=== PATIENT | male | born 1970 | race Caucasian/White ===

== ENCOUNTER 2025-05-17 12:52 | Inpatient (IN) | payer OTHER, SELFPAY ==
[2025-05-17] VITALS (10 sets, daily range): BP systolic 108–140; BP diastolic 61–98; BMI 33.7; BMI 31.6
--- NOTE | 2025-05-17 09:01 | ED.GENMED ---
History of Present Illness
General
Chief Complaint: Fainting/Passed Out
Source: patient and records
Exam Limitations: none
Time Seen by Provider: 05/17/25 08:37
Nursing documentation reviewed up to this point in time: agreed with
History of Present Illness
History of Present Illness:
54-year-old male with a past medical history of hypertension, atrial fibrillation status post ablation in 2022 no longer on anticoagulation who presents to the ER for evaluation after syncopal event; also complaining of chest pains on Friday and
persistent mild dizziness. Patient reports yesterday he got up from the couch to go into the kitchen�he says that 'the next thing I know I am on the ground.' He says he did not have any prodrome of chest pain or palpitations, shortness of breath
or even lightheadedness although since this episode he says he has had positional lightheadedness when going from sitting to standing. He fell down to the ground and hit the right side of his head on the ground. Sustained minor laceration/abrasion
to the forehead. He did not immediately seek care but says that this morning he still had some residual positional lightheadedness, had right sided headache and 'did not feel quite right' which prompted him to come to the ER. He does make note
that on Friday he was moving his son into college and noticed that he was having exertional chest pains when walking up the steps that limited his activity. He also notes that he has been under significant stress recently including the recent
passing of his father few weeks ago. He does have known history of A-fib but no other known cardiac issues; he says he has not had any issues since he had a cardiac ablation in [address] Alcaraz. His usual pit hand is Dr. Reddy.
Past History
Past History
ED Past Medical History: HTN
ED Past Surgical History: Appendectomy, Orthopedic and Other
Review of Systems
Review of Systems
All Other Systems: ROS reviewed and negative except as documented in HPI and ROS
Constitutional: Denies fever
Respiratory: Denies trouble breathing
Cardiac: Reports chest pain and syncope; Denies palpitations
ABD/GI: Denies abdominal pain
: Denies flank pain
Musculoskeletal: Denies neck pain or back pain
Neurological: Reports dizzy and headache
Phy Exam
Physical Exam
Physical Exam:
General: Awake, alert, oriented x3; no acute distress
Head: Normocephalic, patient has minor approximately 4 cm abrasion/very superficial laceration to the right forehead and a contusion in this area
Eyes: Conjunctiva normal, EOMI, pupils equal round reactive to light bilaterally
Throat: Airway intact, handling secretions
Neck: Trachea midline, moving freely without pain
Lungs: Clear to auscultation bilaterally, no wheezing, rales, rhonchi
Heart: Regular rate and rhythm, no murmurs, gallops, or rubs appreciated
Abd: Soft, non distended, nontender, no palpable masses
Back: No signs of trauma to the back or flank
Neuro: Cranial nerves grossly intact, speech fluid, motor and sensory grossly intact
Extremities: No edema in extremities, warm and well-perfused, atraumatic
Scores
Heart Failure Risk
Heart Failure Risk Score: Not Applicable
Heart Score for Chest Pain Patients
STEMI patient?: Not applicable
Withdrawal Assessment of Alcohol
Withdrawal Assessment Completed?: Not applicable
Course
Orders/Labs/Results
Orders:
Orders
05/17/25 08:36
Electrocardiogram (*1) Urgent
Reason for Study: Syncope
EKG- Treatment ONCE
05/17/25 08:57
CT Head W/o Iv Contrast Urgent
Comment:
Reason For Exam: syncope and collapse, frontal head strike
Orthostatic VS- Treatment ONCE
05/17/25 08:58
0.9% Sodium Chloride 1000 ml [Nss] 1,000 ml IV BOLUS
05/17/25 09:05
Complete Blood Count/With Diff Urgent
Comprehensive Metabolic Panel Urgent
Magnesium Urgent
Troponin I Urgent
05/17/25 09:19
D-Dimer Urgent
05/17/25 10:15
0.9% Sodium Chloride 1000 ml [Nss] 1,000 ml IV BOLUS
Magnesium Sulfate 2 Gram/50 ml [Magnesium Sulfate] 2 gram in 50 ml IV NOW
Abnormal Lab Results
05/17/25 05/17/25
09:05 09:19
RBC 4.34 L 10^6/uL
(4.70-6.10)
MCV 94.5 H fL
(80.0-94.0)
MCH 34.3 H pg
(27.0-31.0)
Absolute Monos (auto) 0.7 H 10^3/uL
(0.1-0.6)
Monocytes % 12.0 H %
(1.7-9.3)
D-Dimer 0.80 H ug/mlFEU
(0.00-0.50)
BUN 25 H mg/dl
(9-20)
Creatinine 1.7 H mg/dL
(0.7-1.3)
Glucose 109 H mg/dl
(70-99)
Magnesium 1.5 L mg/dl
(1.6-2.3)
AST 129 H U/L
(17-59)
ALT 95 H U/L
(0-50)
05/17/25 09:05
05/17/25 09:05
Vital Signs
Initial and Last Documented VS:
Initial Vital Signs
Temp Pulse Resp BP Pulse Ox
37.0 C 87 16 121/86 98
05/17/25 08:34 05/17/25 08:34 05/17/25 08:34 05/17/25 08:34 05/17/25 08:34
Last Documented Vital Signs
Temp Pulse Resp BP Pulse Ox
37.0 C 87 16 121/86 98
05/17/25 08:34 05/17/25 08:34 05/17/25 08:34 05/17/25 08:34 05/17/25 09:02
MDM/Problems Addressed
Differential Diagnosis Includes:
Syncope: Orthostatic hypotension/postural syncope, vasovagal syncope, dysrhythmia, dehydration, electrolyte derangement, valvular disease, PE
MDM/Problems Addressed:
54-year-old male presents for evaluation after episode of syncope yesterday�still with some residual positional lightheadedness today. No associated chest pains over the past 48 hours but did have some exertional chest pains with moving his son
into college on Friday. Vital signs are within acceptable range here. Physical exam is as above. EKG shows sinus rhythm with no ectopy or AV block, no Brugada, normal QTc. Plan to place an IV and send labs including a CBC and a CMP. Will check
troponin. Check D-dimer PE with chest pain Friday and syncope yesterday although low clinical suspicion for PE. Will check CT head after his fall with head strike and residual headache. Performed some minor wound care measures with Steri-Strips
and Dermabond but wound very superficial no need for sutures. He reports tetanus up-to-date. Monitor closely reassess after the above.
Labs reviewed: CBC unremarkable, CMP shows significant FEDERICO with creatinine of 1.7 from baseline of 0.6. Hypomagnesemia 1.5 will replete. He does have mild transaminitis with AST greater than ALT as she admits to recent increased alcohol use due to
stress. His troponin is undetectable. His D-dimer was marginally elevated but taking full clinical picture into account very low suspicion that this is a PE�he denies current chest pain or dyspnea, has normal heart rate without tachypnea, no
hypoxia, no hemoptysis, etc. More likely elevation related to minor head trauma with laceration and contusion. In my judgment given his significant acute renal injury would hold off on CT angiogram for now. CT head after the fall with head strike
was negative for any acute posttraumatic injury. Will resuscitate with IV fluids will admit for continued monitoring and fluid resuscitation. Discussed case with hospitalist.
Chronic conditions affecting care:
Atrial fibrillation
*Radiology
Radiology exam reviewed: radiology read reviewed
*Pulse Oximetry
SaO2: 98
Oxygen Mode of Delivery: Room air
Patient hypoxic: no (98%)
*EKG
Interpreted by ED Provider?: Yes
Heart Rate: 68
Rate: normal
Rhythm: sinus
[facility] [place]: normal axis
Interval: normal interval
QRS Pattern: normal QRS
Ischemia: no ischemia
*Critical Care Note
Total Time (30-74mins, 75-104mins- exclusive of procedures): Not Applicable
Data Reviewed
Review of Other/Old Records Reveals: Labs and Records
Source: patient and records
Further Testing Considered But Not Given:
Considered CT chest
Patient Management
Discussion with other providers: Hospitalist (Discussed with hospitalist)
Escalation/DeEscalation of care consider admission/obs:
Admission indicated
ED Attending Note
-
Portions of this chart may have been created with voice recognition software.� Occasional wrong word or��sound alike� substitutions may have occurred due to the inherent limitations of voice recognition software.
Discharge Plan
Departure
Patient Disposition: Admit
Date of Disposition: 05/17/25
Time of Disposition: 10:22
Admit to doctor: José Manuel
Presentation/result/management discussed w/ accepting MD/DO: Hospitalist
Discharge Problem:
Syncope and collapse, FEDERICO (acute kidney injury), Forehead laceration
Prescriptions:
No Action
lisinopril 10 mg Tablet
10 mg PO DAILY
Zyrtec 10 mg Capsule
10 mg PO DAILY
Eliquis 5 mg Tablet
5 mg PO BID
diltiazem HCl 120 mg Tablet
120 mg PO DAILY Qty: 0 0RF
Referrals:
Constantine Estrada MD [Family Provider, [facility]]
Interventions
Interventions:
*Risk Screen - Suicide Last Done: 05/17/25 08:34
*General Assessment Last Done: 05/17/25 08:52
*Neglect/Abuse Screening Last Done: 05/17/25 08:34
*ED- Fall Risk Assessment Last Done: 05/17/25 08:52
*ED COVID-19 Vaccine History Last Done: 05/17/25 08:56
ED- Cardiac Assessment Last Done: 05/17/25 08:52
ED- Neurological Assessment Last Done: 05/17/25 08:52
Discharge Date and Time
Print Language: MALTESE
[2025-05-17] MEDS: NSS 1000 IV ×3 (09:08→18:34)
[2025-05-17 09:24] LABS: Hematocrit 41.0 % (39.0-52.0); Hemoglobin 14.9 g/dL (13.0-18.0); Mean Corp Hgb Conc. 36.3 g/dL (33.0-37.0); Mean Corpuscular Volume 94.5 fL (80.0-94.0); Nucleated Red Blood Cells % 0 % (-); Platelet Count 193 10^3/uL (130-400); Red Cell Dist. Width 13.8 % (11.5-14.5)
[2025-05-17 09:43] LABS: ALT (SGPT) 95 U/L (0-50); AST (SGOT) 129 U/L (17-59); Albumin 4.7 g/dl (3.5-5.0); Alkaline Phosphatase 82 U/L (38-126); Blood Urea Nitrogen 25 mg/dl (9-20); Calcium 9.9 mg/dl (8.4-10.2); Carbon Dioxide 24 mmol/L (22-30); Chloride 98 mmol/L (98-107); Glucose 109 mg/dl (70-99); Magnesium 1.5 mg/dl (1.6-2.3); Potassium 4.3 mmol/L (3.5-5.1); Sodium 135 mmol/L (135-145); Total Protein 7.8 g/dl (6.3-8.2); eGFR 47.02
[2025-05-17 09:50] LABS: Troponin I < 0.012 ng/ml
[2025-05-17 10:11] LABS: D-Dimer 0.80 ug/mlFEU (0.00-0.50)
[2025-05-17] MEDS: MAGNESIUM SULFATE 50 IV (10:30)
[2025-05-17] MEDS: TYLENOL 650 MG PO (11:02)
--- NOTE | 2025-05-17 12:38 | HPS.HSE ---
Family Physician
-
Family Physician: Constantine Estrada
Chief Complaint
-
Syncope
History of Present Illness
54-year-old male had a syncopal episode yesterday afternoon. Did have symptoms of lightheadedness before he passed out. He was at home when it happened, stood up to walk across the room and subsequently found himself facedown. His mother tried to
wake him up.
Denies history of syncope.
Denies associated symptoms such as chest pain or shortness of breath. Has mild frontal headache as a result of head strike when he went down.
States he has been under a lot of stress lately due to recent loss of his father, his son started college, lots of work stress.
He has been drinking heavily on a daily basis, 4 drinks of vodka daily. Last drink was yesterday.
Medical History
Past Medical History
Past Medical History: Reports Other
Additional Past Medical History:
Essential hypertension
Paroxysmal atrial fibrillation
Alcohol use disorder
Past Surgical History: Reports Other
Additional Past Surgical History:
Ablation for atrial fibrillation, 2022
Left inguinal hernia repair
Social History
Tobacco: Non-smoker
Alcohol: Daily
Drug: None
Living: With Family
Employment: Employed
Family History
Family History: Not pertinent
Allergies / Home Medications
Allergies reflects when Allergies were last updated in [employer].
Home Medications with original date entered in [employer]
Allergy/Medication List:
Allergies
Allergy/AdvReac Type Severity Reaction Status Date / Time
Environmental Allergy Burning Uncoded 05/17/25 08:36
eyes,
itching
Home Medications
cetirizine 10 mg capsule (Zyrtec) 10 mg PO DAILY 08/05/23
lisinopril 10 mg tablet 10 mg PO DAILY 08/05/23
diltiazem HCl 240 mg capsule,24 hr,extended release 240 mg PO DAILY 05/17/25
hydrochlorothiazide 12.5 mg capsule 12.5 mg PO DAILY 05/17/25
Review of Systems
-
History Source: Patient
A 12 point ROS was completed and negative except as noted: Yes
Physical Exam
Vital Signs
Vital Signs
Temp Pulse Resp BP Pulse Ox
98.6 F 76 14 110/69 93
05/17/25 08:34 05/17/25 12:30 05/17/25 12:30 05/17/25 12:00 05/17/25 12:30
Physical Exam
General: Well Developed, Well Nourished, No Apparent Distress and Comfortable
HEENT: Anicteric, Moist mucous membranes, PERRLA and Other (Right frontal laceration with dressing intact)
Respiratory: Clear
Cardiac: S1/S2 and Regular Rhythm
GI: Soft, Non Tender and Non Distended
Genito-urinary: Deferred by me
Musculoskeletal: No Clubbing, No Cyanosis and No Edema
Skin: Warm and Dry
Neuro: AO x 3
Hematologic/Lymphatic: No Lymphadenopathy
Psych: Calm
Laboratory Results
-
05/17/25 09:05
05/17/25 09:05
Laboratory Results
Total Bilirubin 1.0 mg/dl (0.2-1.3) 05/17/25 09:05
AST 129 U/L (17-59) H 05/17/25 09:05
ALT 95 U/L (0-50) H 05/17/25 09:05
Alkaline Phosphatase 82 U/L (38-126) 05/17/25 09:05
Troponin I < 0.012 ng/ml 05/17/25 09:05
Impression/Plan
-
Syncope -suspect due to volume depletion due to alcohol use disorder. Hold antihypertensives. Continue IV fluid repletion.
Admit to telemetry. Doubt arrhythmic etiology for syncope.
EKG with normal sinus rhythm. Normal QTc.
Head laceration due to syncope -CT head negative.
FEDERICO -due to volume depletion. Hold lisinopril, HCTZ. IV fluids as above. Recheck labs in the morning.
Hypomagnesemia -repleted in the emergency room. Recheck levels tomorrow.
Acute alcohol induced hepatitis -recheck labs in the morning.
Alcohol use disorder -drinks vodka daily. He uses it as a coping mechanism due to life stress. History of depression, anxiety disorder. Not on medications.
He is agreeable to psychiatry consult. Interested in abstaining from further alcohol use.
History of atrial fibrillation -treated with ablation, 2022. Off anticoagulation since.
Essential hypertension -stable.
Full code
[2025-05-17 12:59] LABS: Troponin I < 0.012 ng/ml
--- NOTE | 2025-05-17 13:40 | CM ---
CM reviewed chart and met with pt bedside in ED. Pt lives alone, ranch style home, no FRANK.
Independent in ADLs, personal care and ambulation at baseline, no DME.
Confirms prescription coverage.
No hx VN or SNF.
PCP: Constantine Estrada
Pharmacy: [facility]
Anticipate discharge home, CM will continue to follow for any discharge planning needs.
--- NOTE | 2025-05-17 16:04 | CON.MD ---
Consultation - Medical
-
pt seen by me today at request of Dr Vanessa due to depression/anxiety/grief/alcohol use
54 yo man brought to ED by employer due to showing up with obvious injury to face from fall yesterday. Unclear if related to a fib (which had been ablated) or alcohol use/withdrawal, or more likely dehydration and hypotension while drinking.
Has been using large amounts of alcohol over past two years as father's health has declined, with worsening over past two weeks since father . Lives alone but has supportive family; mother had come to visit him and heard him fall in kitchen,
barely able to arouse him. Seen by RHINA pierre who applied steri strips, spent the night at home alone, went into work today not feeling well, brought in.
Has seen meaning to stop alcohol use, as well as get some help from mental health provider due to overwhelming grief.
Past psychiatric history significant for teen drinking/drug use, but stopped all that during marriage. As marriage fell apart ( 6 years ago) pt turned again to alcohol to cope, doc after discovering infidelity. Seen at [facility]
outpatient, felt it was a good experience.
Had 24 years of sobriety during marriage, at 's insistence.
No history of medication for mental health problems.
Family history of alcohol use disorder on mother's side, including cousin who from it.
Medical history sig for a fib ablated this spring. Hypertensive.
Born and [place] in [place], became difficult to manage in teens so father asked him to leave at age 15. Went to stay with cousin then moved to [place] to be with friend there. Returned here, found GF who was unfaithful, then met ex-,
with two sons. Older son with Asberger's, caused tension in family ('I was in denial') Sons now both in college, close to him and to ex-.
Worked over 20 years in [employer] business, more recently a credit analysis manager for [employer]. Job secure, financially secure
Not currently dating.
Sleeps poorly (up every two hours) appetite only fair, libido fair. enjoys golf
Has thought of suicide at times, not presently (took gun to neighbor's house for safe-keeping when in process of divorce.)
No drug allergies
Meds diltiazem, HCTZ, zyrtec
MSE: Alert oriented pleasant but freqently tearful man, wd/wn lying in bed on monitor. Chokes up when talking about father and the trouble pt gave him, denies current suicidal ideation. No signs of cognitive impairment, no signs of psychosis.
Depressed mood and affect
Impression: Alcohol use disorder, moderate
Acute grief complicating underlying depressive disorder
Recommendations;
Needs alcohol withdrawal protocol; phenobarb contraindicated with diltiazem, will instead use taper of gabapentin
Might benefit from antidepressant, will reassess in am
+/- inpatient alcohol rehab, likely could do well with IOP
--- NOTE | 2025-05-17 17:37 | PTCARENOTE ---
Received pt from ER via stretcher, accompanied by ER staff. Pt AAO x3, sl anxious; CARCAMO well, ambulatory to bed, no c/o weakness/dizziness. Pt with (+) arm tremors at times. MSAS 3. VSS. Placed on telemetry:NSR. On room air- pulse ox 94%, no SOB
noted. Abd obese, round, non-tender; to be on regular diet. Pt DTV; urinal at bedside; aware of need for urine specimen. Afebrile; face flushed, steristrips intact to Rt forehead laceration. IVF's NSS@ 80 ml/hr started via Rt AC site, currently
infusing well without sx of infiltration. Resting in bed at present. Will continue to monitor.
[2025-05-17 18:05] LABS: INR 0.98; PT 13.3 Sec (11.4-14.6)
[2025-05-17 18:06] LABS: APTT 24.8 Sec (23.4-35.0)
[2025-05-17] MEDS: THIAMINE INJECTION 200 MG IV (18:33)
[2025-05-17] MEDS: FOLVITE 1 MG PO (18:33)
[2025-05-17] MEDS: NEURONTIN 600 MG PO ×2 (18:33→21:05)
[2025-05-17] MEDS: FLUSH (NSS) 1 FLUSH IV (18:33)
[2025-05-17 18:59] LABS: Urine Character Clear (Clear)
[2025-05-17] MEDS: MELATONIN 5 MG PO (21:04)
[2025-05-17] MEDS: HEPARIN 5000 UNITS SC (21:04)
[2025-05-18] MEDS: TYLENOL 650 MG PO (00:43)
[2025-05-18] MEDS: THIAMINE INJECTION 200 MG IV ×3 (00:44→17:07)
[2025-05-18 03:47] VITALS: BP 134/97
[2025-05-18] MEDS: NSS 1000 IV (06:43)
[2025-05-18 07:20] VITALS: BP 142/95
[2025-05-18 09:16] LABS: ALT (SGPT) 65 U/L (0-50); AST (SGOT) 71 U/L (17-59); Albumin 3.9 g/dl (3.5-5.0); Alkaline Phosphatase 69 U/L (38-126); Blood Urea Nitrogen 20 mg/dl (9-20); Calcium 8.7 mg/dl (8.4-10.2); Carbon Dioxide 26 mmol/L (22-30); Chloride 102 mmol/L (98-107); Estimated Creatinine Clearance 87 ml/min; Glucose 93 mg/dl (70-99); Magnesium 1.7 mg/dl (1.6-2.3); Potassium 4.1 mmol/L (3.5-5.1); Sodium 134 mmol/L (135-145); Total Protein 6.3 g/dl (6.3-8.2); eGFR > 60.00
[2025-05-18] MEDS: ZYRTEC 10 MG PO (09:27)
[2025-05-18] MEDS: CARDIZEM CD 240 MG PO (09:27)
[2025-05-18] MEDS: HEPARIN 5000 UNITS SC ×2 (09:27→21:14)
[2025-05-18] MEDS: FOLVITE 1 MG PO (09:28)
[2025-05-18] MEDS: NEURONTIN 400 MG PO ×3 (09:28→21:15)
--- NOTE | 2025-05-18 10:25 | W.PN.HOSP.TC ---
Today's Communication/Plan
-
Discharge planning
Assessment / Plan
Assessment / Plan
Gen-AAOx3, NAD
HEENT-right frontal scalp dressing intact, anicteric, clear oral mm
Neck-supple
CV-reg, no M, +S1/S2
Lungs-clear B/L
Abd-soft, NT, ND
Ext-no edema
Musculoskeletal-no cyanosis, clubbing
Skin-warm and dry
Neuro-grossly non-focal
Psych-calm, cooperative
Syncope -suspect due to volume depletion due to alcohol use disorder.
Admit to telemetry. Doubt arrhythmic etiology for syncope.
EKG with normal sinus rhythm. Normal QTc.
Head laceration due to syncope -CT head negative.
FEDERICO -due to volume depletion. Hold lisinopril, HCTZ. IV fluids as above. FEDERICO resolved.
Hyponatremia -mild, 134. Monitor for now. Continue to hold HCTZ.
Hypomagnesemia -improved.
Acute alcohol induced hepatitis -labs improving.
Nasal congestion/acute sinusitis -with facial pressure. Saline mist nasal spray ordered.
Alcohol use disorder -drinks vodka daily. He uses it as a coping mechanism due to life stress. History of depression, anxiety disorder. Not on medications.
Appreciate psychiatry input.
Continue gabapentin taper. Tremors are improving.
Has not required as needed lorazepam so far.
History of atrial fibrillation -treated with ablation, 2022. Off anticoagulation since.
Essential hypertension -stable.
Full code
Dispo -appears medically stable for discharge, await social work and psychiatry input regarding alcohol rehab.
Patient interested in intensive outpatient program.
Family updated at the bedside.
Anticipated Discharge: Today
Subjective/Interval History
-
Date of Service: May 18, 2025
Patient seen and examined, complaining of nasal congestion and facial pressure.
Objective Data
-
Labs:
Laboratory Results
05/18/25
07:11
Sodium 134 L
Potassium 4.1
Chloride 102
Carbon Dioxide 26
BUN 20
Creatinine 1.2
Glucose 93
Calcium 8.7
Total Bilirubin 1.3
AST 71 H
ALT 65 H
Alkaline Phosphatase 69
Vital Signs:
Vital Signs
Temp Pulse Resp BP Pulse Ox
97.8 F 62 18 142/95 96
05/18/25 07:20 05/18/25 07:20 05/18/25 07:20 05/18/25 07:20 05/18/25 07:20
I&O
05/17/25 05/18/25 05/19/25
06:59 06:59 06:59
Intake Total 1600 / 1600
Output Total 300 / 300
Balance 1300 / 1300
Review of Systems
-
History Source: Patient
All other systems: Reviewed and negative
[2025-05-18 11:24] VITALS: BP 141/81
--- NOTE | 2025-05-18 12:14 | CM ---
Chart reviewed. Discussed w/ hospitalist and psychiatrist, plan is for patient to remain in hospital for a few more days to detox and for patient to start w/ IOP. Spoke w/ Hugo/THOMAS, informed CM that Bhaskar will meet w/ patient today and assist w/
setting up IOP.
Patient is agreeable to staying in the hospital and meeting w/ THOMAS later today
Plan: Home w/ IOP once medically stable
[2025-05-18] MEDS: OCEAN, SALINE MIST 2 SPRAYS NASAL (12:17)
--- NOTE | 2025-05-18 12:28 | W.PN.UPDATE ---
Update Note
Progress Note Update
patient seen chart reviewed. discusssed with nursing and with dr stanton. dr ladd and cm texted. patient was very thoughtful and engaged in discussion of his alcoholism and his life history. he had 27 years of sobriety he said largely under his
now 's supervision. over the past two years he has suffered much loss. his best friend of cancer his aunt of pancreatic cancer and his father two weeks ago here at ...in fact [place] the [place]. in the past two years he has consumed
five vodka drinks at least daily. he has not been sober long enough to get wd sx. he does admit to being somewhat tremulous now but he is only here since yesterday so may not be in full wd yet. there is not a bal on chart but he drank the day
before so level may have been zero at admit. he seems motivated for sobriety. he does have supports two sons of whom he seems very proud a mother and sis. he misses his dad who was his best friend. he does have a job to return to. he was
treated with psychotherapy at [facility] about six years ago. no psych meds. he is agreeable to [facility] [place] [facility] discussed w dr ladd keeping him a few more days re possible wd and then he can go to IOP AA etc. [facility] will see him this afternoon. do not feel
he needs antidepressants right now. using gabapentin for detox. has not required bzp's. bps slightly high will follow
[2025-05-18 15:29] VITALS: BP 156/94
[2025-05-18 19:34] VITALS: BP 155/97
[2025-05-18] MEDS: MELATONIN 5 MG PO (21:14)
[2025-05-18 23:51] VITALS: BP 142/93
[2025-05-19] MEDS: THIAMINE INJECTION 200 MG IV ×3 (00:01→15:58)
[2025-05-19 03:28] VITALS: BP 142/95
[2025-05-19 07:30] VITALS: BP 120/90
[2025-05-19 07:31] LABS: Glucose - Point of Care 101 mg/dl (70-99)
[2025-05-19] MEDS: CARDIZEM CD 240 MG PO (08:06)
[2025-05-19] MEDS: ZYRTEC 10 MG PO (08:06)
[2025-05-19] MEDS: NEURONTIN 400 MG PO ×3 (08:06→21:02)
[2025-05-19] MEDS: HEPARIN 5000 UNITS SC ×2 (08:06→21:04)
[2025-05-19] MEDS: FOLVITE 1 MG PO (08:06)
[2025-05-19 11:36] VITALS: BP 124/88
--- NOTE | 2025-05-19 12:00 | W.PN.HOSP.TC ---
Today's Communication/Plan
-
Orthostatic vitals
Await psychiatry input
Assessment / Plan
Assessment / Plan
Gen-AAOx3, NAD
HEENT-right frontal scalp dressing intact, anicteric, clear oral mm
Neck-supple
CV-reg, no M, +S1/S2
Lungs-clear B/L
Abd-soft, NT, ND
Ext-no edema
Musculoskeletal-no cyanosis, clubbing, minimal bilateral hand tremor
Skin-warm and dry
Neuro-grossly non-focal
Psych-calm, cooperative
Syncope -suspect due to volume depletion due to alcohol use disorder.
Doubt arrhythmic etiology for syncope.
EKG with normal sinus rhythm. Normal QTc.
Check orthostatics.
Head laceration due to syncope -CT head negative.
FEDERICO -due to volume depletion. Hold lisinopril, HCTZ. IV fluids as above. FEDERICO resolved.
Hyponatremia -mild, 134. Monitor for now. Continue to hold HCTZ.
Hypomagnesemia -improved.
Acute alcohol induced hepatitis -labs improving.
Nasal congestion/acute sinusitis -with facial pressure. Saline mist nasal spray ordered.
Alcohol use disorder -drinks vodka daily. He uses it as a coping mechanism due to life stress. History of depression, anxiety disorder. Not on medications.
Appreciate psychiatry input.
Continue gabapentin taper. Tremors are improving.
Has not required as needed lorazepam so far.
History of atrial fibrillation -treated with ablation, 2022. Off anticoagulation since.
Essential hypertension -stable.
Full code
Dispo -appears medically stable for discharge, await social work and psychiatry input regarding alcohol rehab.
Patient interested in intensive outpatient program.
Discharge if cleared by psychiatry.
Family updated at the bedside.
Anticipated Discharge: Within 24 hours
Subjective/Interval History
-
Date of Service: May 19, 2025
Patient seen and examined. Feels better today, mild frontal headache.
Objective Data
-
Vital Signs:
Vital Signs
Temp Pulse Resp BP Pulse Ox
98.6 F 89 18 124/88 93
05/19/25 11:36 05/19/25 11:36 05/19/25 11:36 05/19/25 11:36 05/19/25 11:36
I&O
05/18/25 05/19/25 05/20/25
06:59 06:59 06:59
Intake Total 1600 / 1600 1080 / 1080
Output Total 300 / 300
Balance 1300 / 1300 1080 / 1080
Review of Systems
-
History Source: Patient
All other systems: Reviewed and negative
[2025-05-19] MEDS: TYLENOL 650 MG PO (12:13)
[2025-05-19 13:00] VITALS: BP 119/83; BP 126/80; BP 128/83; PULSE 71; PULSE 80; PULSE 88
--- NOTE | 2025-05-19 14:15 | W.PN.UPDATE ---
Update Note
Progress Note Update
patient seen chart reviewed. discussed with nursing. mr myles is doing very well. he said he feels much better than he has in a very long time. his tremulousness while still present to a degree is much less. his mother sister and a friend were in
to visit and were he says pleased with his progress. friend is nine years in recovery and is willing to be his AA sponsor. he met with bcacyn who have made some suggestions for iop. i suggested he make an appt today with iop for early next week as
it is likely he will be dc tomorrow. we talked about whether to continue gabapentin which he feels is helpful w anxiety. it is used nowadays as an aid to sobriety but of course it too can be misused. would consider using 300 mg tid which is the
dose he will be on for tomorrow for a time after dc . many iop programs have psychiatrists...if not his pcp could prescribe gabapentin for him. we talked about a plan for sobriety. exactly how he will deal with temptations to drink which will
surely occur. family has removed all etoh from the home. suggested he think about a plan and carry it with him written on an index card eg ten tasks he can begin when he is tempted to drink these should be things he can easily do eg calling a
friend, walking around the block ten times call sponsor get to a meeting etc etc. psych will check in w him tomorrow.
[2025-05-19 15:30] VITALS: BP 140/90
[2025-05-19] MEDS: OCEAN, SALINE MIST 2 SPRAYS NASAL (22:58)
[2025-05-19] MEDS: MELATONIN 5 MG PO (22:58)
[2025-05-19 23:22] VITALS: BP 148/99
[2025-05-20] MEDS: THIAMINE INJECTION 200 MG IV ×2 (00:07→09:23)
[2025-05-20] MEDS: TYLENOL 650 MG PO (05:16)
[2025-05-20 07:20] VITALS: BP 143/98
[2025-05-20 09:16] LABS: ALT (SGPT) 67 U/L (0-50); AST (SGOT) 77 U/L (17-59); Albumin 3.9 g/dl (3.5-5.0); Alkaline Phosphatase 70 U/L (38-126); Blood Urea Nitrogen 13 mg/dl (9-20); Calcium 8.9 mg/dl (8.4-10.2); Carbon Dioxide 27 mmol/L (22-30); Chloride 104 mmol/L (98-107); Estimated Creatinine Clearance 95 ml/min; Glucose 110 mg/dl (70-99); Potassium 4.4 mmol/L (3.5-5.1); Sodium 135 mmol/L (135-145); Total Protein 6.4 g/dl (6.3-8.2); eGFR > 60.00
[2025-05-20] MEDS: NEURONTIN 300 MG PO (09:21)
[2025-05-20] MEDS: FOLVITE 1 MG PO (09:21)
[2025-05-20] MEDS: CARDIZEM CD 240 MG PO (09:21)
[2025-05-20] MEDS: HEPARIN 5000 UNITS SC (09:21)
[2025-05-20] MEDS: ZYRTEC 10 MG PO (09:22)
--- NOTE | 2025-05-20 10:00 | W.PN.HOSP.TC ---
Addendum entered and electronically signed by Eliseo Vanessa DO 05/20/25 10:30:
Psychiatry service (Dr. Biswas) okay with discharge today.
Follow-up with intensive outpatient program for alcohol.
Follow-up with PCP.
Original Note:
Today's Communication/Plan
-
Await psychiatry input
Assessment / Plan
Assessment / Plan
Gen-AAOx3, NAD
HEENT-right frontal scalp dressing intact, anicteric, clear oral mm, healing and fading facial bruise under right eye
Neck-supple
CV-reg, no M, +S1/S2
Lungs-clear B/L
Abd-soft, NT, ND
Ext-no edema
Musculoskeletal-no cyanosis, clubbing, minimal bilateral hand tremor
Skin-warm and dry
Neuro-grossly non-focal
Psych-calm, cooperative
Syncope -suspect due to volume depletion due to alcohol use disorder.
Doubt arrhythmic etiology for syncope.
EKG with normal sinus rhythm. Normal QTc.
Orthostatics negative.
Head laceration due to syncope -CT head negative.
FEDERICO -due to volume depletion. Hold lisinopril, HCTZ. IV fluids as above. FEDERICO resolved.
Hyponatremia -resolved.
Hypomagnesemia -improved.
Acute alcohol induced hepatitis -labs improving. Can check liver enzymes in 2 weeks with primary care doctor and consider liver ultrasound if still elevated. May have fatty liver disease due to obesity. Discussed with patient. Weight loss
recommended.
Nasal congestion/acute sinusitis -with facial pressure. Saline mist nasal spray ordered.
Alcohol use disorder -drinks vodka daily. He uses it as a coping mechanism due to life stress. History of depression, anxiety disorder. Not on medications.
Appreciate psychiatry input.
Continue gabapentin taper. Tremors are improving.
Has not required as needed benzodiazepines so far.
History of atrial fibrillation -treated with ablation, 2022. Off anticoagulation since.
Essential hypertension -stable.
Full code
Dispo -appears medically stable for discharge, await social work and psychiatry input regarding alcohol rehab.
Patient interested in intensive outpatient program.
Discharge if cleared by psychiatry.
Anticipated Discharge: Today
Subjective/Interval History
-
Date of Service: May 20, 2025
Patient seen and examined. Had a headache last night, relieved with Tylenol.
Objective Data
-
Labs:
Laboratory Results
05/20/25
08:09
Sodium 135
Potassium 4.4
Chloride 104
Carbon Dioxide 27
BUN 13
Creatinine 1.1
Glucose 110 H
Calcium 8.9
Total Bilirubin 0.8
AST 77 H
ALT 67 H
Alkaline Phosphatase 70
Vital Signs:
Vital Signs
Temp Pulse Resp BP Pulse Ox
97.6 F 72 16 143/98 95
05/20/25 07:20 05/20/25 09:21 05/20/25 07:20 05/20/25 09:21 05/20/25 07:20
I&O
05/19/25 05/20/25 05/21/25
06:59 06:59 06:59
Intake Total 1080 / 1080 360 / 360
Balance 1080 / 1080 360 / 360
Review of Systems
-
History Source: Patient
All other systems: Reviewed and negative
--- NOTE | 2025-05-20 10:29 | W.DS.TRANS ---
DC Summary - [facility]
-
Discharge Instructions:
Discharge Diagnosis/Procedures Syncope, acute kidney injury, head laceration,
hepatitis
Diet Regular
Activity As tolerated
Driving Restrictions As prior to admission
Bathing Restrictions None
Instructions:
Stand-Alone Forms:
Changes to Home Medications: Yes
Discharge Medications:
DC Medications w/original date entered in [facility]
cetirizine 10 mg capsule (Zyrtec) 10 mg PO DAILY Allergies 08/05/23
lisinopril 10 mg tablet 10 mg PO DAILY Blood Pressure 08/05/23
diltiazem HCl 240 mg capsule,24 hr,extended release 240 mg PO DAILY Blood Pressure 05/17/25
folic acid 1 mg tablet 1 mg PO DAILY #30 tabs 05/20/25
gabapentin 300 mg capsule 300 mg PO TID #42 caps 05/20/25
thiamine mononitrate (vit B1) 100 mg tablet 100 mg PO BID #60 tabs 05/20/25
Home Medication Changes
Stop hydrochlorothiazide
Pending Results: No
--- NOTE | 2025-05-20 11:47 | W.PN.UPDATE ---
Update Note
Progress Note Update
pt seen to review progress and plans for discharge. in much better spirits, which he repeatedly points out. Smiling, planning next steps (was see by [facility] team, referrals made to agency in [place] where he plans to go for intake immediatly upon
discharge today.) Has spoken to sons and other family, sister and mother cleaned out house from alcohol. Committed to sobriety, 'i've done it before.' plans to return to work on Friday, but will not let it get to him. grateful for care here. will
continue on gabapentin for next couple of weeks in taper: 300 tid for a week, then bid for a week, then once a day.
--- NOTE | 2025-05-20 14:18 | CM ---
Following up on patient. Patient has no discharge needs.
PLAN: Home with no needs.
== END 2025-05-20 11:22 | disposition home or self-care (01) | DRG 683 ==
LOC: 4 EAST ACU 12:52
PROVIDERS: ADMITTING PHYSICIAN Hospitalist; CONSULT PHYSICIAN Psychiatry & Neurology Psychiatry; EMERGENCY PHYSICIAN Emergency Medicine; FAMILY PHYSICIAN Family Medicine
DX: N17.9 Acute kidney failure, unspecified (principal); E87.1 Hypo-osmolality and hyponatremia; F10.24 Alcohol dependence with alcohol-induced mood disorder; R55 Syncope and collapse; I10 Essential (primary) hypertension; I48.0 Paroxysmal atrial fibrillation; E83.42 Hypomagnesemia; R74.01 Elevation of levels of liver transaminase levels; K70.10 Alcoholic hepatitis without ascites; F32.A Depression, unspecified; F41.9 Anxiety disorder, unspecified; E86.9 Volume depletion, unspecified; J01.90 Acute sinusitis, unspecified; K76.0 Fatty (change of) liver, not elsewhere classified; E66.9 Obesity, unspecified; S01.81XA Laceration without foreign body of other part of head, initial encounter; W01.198A Fall on same level from slipping, tripping and stumbling with subsequent striking against other object, initial encounter; Y93.89 Activity, other specified; Y92.009 Unspecified place in unspecified non-institutional (private) residence as the place of occurrence of the external cause; Z60.2 Problems related to living alone; Z68.31 Body mass index [BMI] 31.0-31.9, adult; Z81.1 Family history of alcohol abuse and dependence; Z63.4 Disappearance and death of family member; Z56.3 Stressful work schedule; Z63.79 Other stressful life events affecting family and household
CPT/HCPCS: 12013; 70450; 80053; 80306; 81003; 82962; 83735; 84100; 84484; 85025; 85379; 85610; 85730; 93005; 96361; 96365; 96366; 99285